=== PATIENT | male | born 1940 | race Caucasian/White ===

== ENCOUNTER → 2023-10-02 14:03 | Outpatient (REF) | payer MEDICARE, OTHER, SELFPAY | LOC: EMG 14:03 | PROVIDERS: ATTENDING PHYSICIAN Family Medicine | DX: R20.0 Anesthesia of skin (principal); R20.2 Paresthesia of skin; G56.03 Carpal tunnel syndrome, bilateral upper limbs | CPT/HCPCS: 95886; 95911 ==